=== PATIENT | male | born 1935 | race Caucasian/White ===

== ENCOUNTER 2017-02-19 01:38 | Emergency (ER) | payer MEDICARE, OTHER ==
[~2017-02-19 01:38] MED LIST: ALLOPURINOL100 MG PO; AMBIEN DPS5 MG PO; ANTIVERT-DPS25 MG PO; ASPIR 8181 MG PO; CLARITIN10 M2 PO; CLOPIDOGREL75 MG PO; CLOTRIMAZOLE-BE45 GM TP; FENOFIBRATE48 MG PO; FENOFIBRATE54 MG PO; GLUCOPHAGE-DPS500 MG PO; IMDUR DPS30 MG PO; JANUVIA100 MG PO; KEFLEX250 MG PO; KLOR-CON M2020 ME1; KLOR-CON M2020 ME1 PO; KLOR-CON PO; LASIX40 M1 PO; LISINOPRIL40 MG PO; METOPROLOL PO; MICARDIS40 MG PO; NITROSTAT0.4 MG SL; PLAVIX75 MG PO; THERA1 EACH PO; TOPROL XL DPS100 MG PO; VITAMIN C WITH500 M1 PO; ZOCOR DPS40 MG PO; ZOCOR40 MG PO
--- NOTE | 2017-02-19 06:13 | ER ---
ADMIT: 02/19/2017 RM/LOC: ER [facility] MR#: [id number] [address] [id number] TAMERA MONTALVO [address] [place] [address] *[facility] Emergency Room Report SEX: M AGE: 81 : 1935 DATE: 02/19/2017 HISTORY OF PRESENT ILLNESS: The patient is an 81-year-old male with a past medical history of hypertension, diabetes, pneumonia, and coronary artery bypass three vessels, stent, came to the ER with chief complaint of cough, feeling tired today, yellow-greenish sputum for 1 day. The patient denies any fever or chills at home or chest pain. PHYSICAL EXAMINATION: VITAL SIGNS: In the ER, the patient was in no obvious pain or distress, sitting in bed, O2 saturation was 97%-98% on room air. The patient was mildly tachypneic with respiratory rate of 24. The patient was not tachycardic and was afebrile. HEAD AND NECK: Noncontributory. CHEST: I did not hear any crackles or wheezing, shallow breathing bilaterally. ABDOMEN: Soft, normal S1, S2. I did not hear any S4 or murmurs. LOWER EXTREMITY: Nonedematous. The patient states he used to have swelling, but is following up with his Lasix and all the swelling of the lower extremities are resolved. EKG was paced. Cardiac enzymes are negative. Chest x-ray showed congestion like the previous x-ray, but has questionable infiltration in the lung. PLAN: The patient was discharged to home with treatment for community- acquired pneumonia. Follow up with the primary doctor as needed. Kraig Arias MD/ dana JOB #: [id number] CC: Kraig Arias MD, Attending Physician
== END 2017-02-19 03:30 | disposition home or self-care (01) ==
LOC: ER 01:38
DX: J18.9 Pneumonia, unspecified organism (principal); E11.22 Type 2 diabetes mellitus with diabetic chronic kidney disease; I13.0 Hypertensive heart and chronic kidney disease with heart failure and stage 1 through stage 4 chronic kidney disease, or unspecified chronic kidney disease; N18.9 Chronic kidney disease, unspecified; I50.9 Heart failure, unspecified; Z95.1 Presence of aortocoronary bypass graft; Z79.899 Other long term (current) drug therapy